=== PATIENT | male | born 1965 | race Caucasian/White ===

== ENCOUNTER → 2019-12-09 | Outpatient (CLI) | payer OTHER | LOC: LAB 12:00 | PROVIDERS: ATTEND Surgery | DX: Z01.812 Encounter for preprocedural laboratory examination (principal); Z20.828 Contact with and (suspected) exposure to other viral communicable diseases ==

== ENCOUNTER 2019-12-13 08:02 | Day surgery (SDC) | payer OTHER ==
[~2019-12-13] VITALS: Ht 177.8 cm; Wt 86.2 kg
[~2019-12-13 08:02] MED LIST: LECITHIN400 MG PO; MELATONIN10 M3 PO
[2019-12-13 08:52] LABS: HEMATOCRIT 43.5 % (42.0-52.0); HEMOGLOBIN 14.6 gm/dL (14.0-18.0)
[2019-12-13 09:25] VITALS: BP 102/64
[2019-12-13] MEDS ORDERED: LORCET 5-325 M1 EACH PO (11:42)
[2019-12-13 12:06] VITALS: BP 102/64
--- NOTE | 2019-12-17 14:34 | O ---
[facility] [place] [address] OPERATIVE REPORT Name: GARUI FAULKNER Room #: [place] [facility] [place]#: [id number] Admission: 12/13/19 Attend Phys: Robert Wang MD Discharge: 12/13/19 Date of : 63 Report #: [id number] THIS REPORT FOR: cc: Jeronimo Butler MD,Jeronimo Wang,Robert Mcneil MD ~ CC: Jeronimo Wang DATE OF SERVICE: 12/13/2019 PREOPERATIVE DIAGNOSIS: Umbilical hernia, symptomatic. POSTOPERATIVE DIAGNOSIS: Umbilical hernia, symptomatic. PROCEDURE PERFORMED: Repair of umbilical hernia with small Ventralex ST patch. ANESTHESIA: General anesthesia. COMPLICATIONS: None. BLOOD LOSS: 5 mL. PROCEDURE NOTE: Abdomen was prepped and draped in sterile fashion. General anesthesia was administered. IV antibiotic was administered. Timeout was performed. Curvilinear incision was made infraumbilically. Incision was carried through the skin and subcutaneous tissue. Mild scar tissue was identified from his laparoscopic hernia repair surgery. Slightly superior to the umbilicus where the skin of the umbilicus dissected from the fascia a hernia was found. This contained about 2-3 cm size lobulated fat. The skin was freed from it completely. The fat content was then dissected free from the fascia level. Once this was performed, the fat was able to be reduced in the properitoneal space. Properitoneal dissection was then created making a pocket. Once this was dissected free, a small Ventralex ST patch was placed without difficulty. Patch opened up well. The ____ was pulled and the patch remained resistant to the pulling. Fascia was then trimmed off. The fascia was then closed with 0 Prolene suture in horizontal mattress fashion x 2. This incorporated the strap. The strap was then trimmed off at the fascia level. The skin was then sewn down to the fascia with 4-0 PDS. Skin was closed with 5-0 PDS. Steri-Strips, 4 x 4's, OpSite used for dressing. The patient tolerated the procedure well. <ELECTRONICALLY SIGNED> By: Robert Wang MD 12/17/19 [id number] Robert Wang MD /nt
== END 2019-12-13 12:50 | disposition home or self-care (01) ==
LOC: OR → TBA 08:02 → OR 08:02 → TBA 08:04 → OR 11:18
PROVIDERS: ATTEND Surgery
DX: K42.9 Umbilical hernia without obstruction or gangrene (principal); Z98.890 Other specified postprocedural states; Z79.899 Other long term (current) drug therapy
CPT/HCPCS: 50010; 50101; 50119; 50386; 50403; 56524; 56525; 62110; 62900; 70005